=== PATIENT | male | born 1970 | race Caucasian/White ===

== ENCOUNTER 2021-10-01 12:06 | Emergency (ER) | payer SELFPAY ==
[~2021-10-01] VITALS: Ht 182.9 cm; Wt 129.6 kg
--- OUTSIDE RECORDS SUMMARY | 2021-10-01 13:25 | CCD ---
Author [facility] Address Unknown Phone Unavailable Support Name Relationship Address Phone UE Next Of Kin Unknown Unavailable SEPIDEH RASMUSSEN Next Of Kin [address] [place] [address] Re-disclosure Warning The records that you are about to access may contain information from federally-assisted alcohol or drug abuse programs. If such information is present, then the following federally mandated warning applies: This information has been disclosed to you from records protected by federal confidentiality rules (42 CFR part 2). The federal rules prohibit you from making any further disclosure of this information unless further disclosure is expressly permitted by the written consent of the person to whom it pertains or as otherwise permitted by 42 CFR part 2. A general authorization for the release of medical or other information is NOT sufficient for this purpose. The Federal rules restrict any use of the information to criminally investigate or prosecute any alcohol or drug abuse patient.The records that you are about to access may contain highly sensitive health information, the redisclosure of which is protected by Article 27-F of the [facility] Public Health law. If you continue you may have access to information: Regarding HIV / AIDS; Provided by facilities licensed or operated by the [facility] Office of Mental Health; or Provided by the [facility] Office for People With Developmental Disabilities. If such information is present, then the following [facility] mandated warning applies: This information has been disclosed to you from confidential records which are protected by state law. State law prohibits you from making any further disclosure of this information without the specific written consent of the person to whom it pertains, or as otherwise permitted by law. Any unauthorized further disclosure in violation of state law may result in a fine or shelter sentence or both. A general authorization for the release of medical or other information is NOT sufficient authorization for further disc losure. Medications No Information Insurance Providers Payer name Policy type / Coverage type Policy ID Covered constitution party ID Covered constitution party's relationship to johansen Policy Johansen Plan Information SELF PAY ONLY [id number] SP [id number] SELF PAY SP Problems, Conditions, and Diagnoses No Information Surgeries/Procedures No Information Results No Information Social History No Information
--- NOTE | 2021-10-01 14:06 | REP ---
INDICATION: blood pressure variability. COMPARISON: None. TECHNIQUE: Portable FINDINGS: The technique utilized in obtaining the radiograph has magnified the cardiac silhouette and accentuated the interstitial markings. There is evidence of mild cardiomegaly accentuated by technique. The lung srivastava are clear. The pleural angles are sharp. The osseous structures are within normal limits. IMPRESSION: There is no acute cardiopulmonary disease. Possible mild cardiomegaly <Electronically signed by Eleazar Webb > 10/01/21 [id number]
[2021-10-01 14:31] LABS: BASO % 0.4 % (0.0-1.0); EOS # 0.1 10^3/uL (0.0-0.5); EOS % 1.2 % (0.0-3.0); HEMOGLOBIN 14.6 g/dl (13.5-17.5); LYMPH # 1.4 10^3/uL (1.5-5.0); LYMPH % 16.6 % (24.0-44.0); MEAN CORPUSCULAR HEMOGLOBIN 32.4 pg (27.0-33.0); MEAN CORPUSCULAR HGB CONC 33.2 g/dl (32.0-36.5); MEAN CORPUSCULAR VOLUME 97.8 fl (80.0-96.0); MONO # 0.7 10^3/uL (0.0-0.8); MONO % 7.9 % (2.0-8.0); NEUTROPHILS # 6.1 10^3/uL (1.5-8.5); NEUTROPHILS % 73.5 % (36.0-66.0); PLATELET COUNT, AUTOMATED 243 10^3/uL (150-450); WHITE BLOOD COUNT 8.3 10^3/uL (4.0-10.0)
[2021-10-01 14:55] LABS: BLOOD UREA NITROGEN 16 MG/DL (7-18); CALCIUM LEVEL 9.1 MG/DL (8.5-10.1); CARBON DIOXIDE LEVEL 22 MEQ/L (21-32); CHLORIDE LEVEL 108 MEQ/L (98-107); GLOMERULAR FILTRATION RATE > 60.0 (>60); GLUCOSE, FASTING 98 MG/DL (70-100); POTASSIUM SERUM 4.4 MEQ/L (3.5-5.1); SODIUM LEVEL 138 MEQ/L (136-145)
[2021-10-01 16:06] VITALS: BP 132/82
--- NOTE | 2021-10-01 17:02 | ECGEPIP ---
[facility] - ED Test Date: 2021-10-01 Pat Name: MITCH STEEN Department: Room: - Gender: Male [place] Hand: Rubi MCCRACKEN : 1970 Requested By: MATTEO Partida Order Number: [id number] Reading MD: Julia Morocho Measurements Intervals [place] Rate: 92 P: 53 TX: 160 QRS: 54 QRSD: 90 T: 28 QT: 352 QTc: 435 Interpretive Statements Normal sinus rhythm No prior Electronically Signed on 10-01-2021 17:02:11 EST by Julia Morocho
== END 2021-10-01 16:08 | disposition home or self-care (01) ==
LOC: EDBD 12:06 → M ED 12:06
DX: Z01.30 Encounter for examination of blood pressure without abnormal findings (principal); I25.10 Atherosclerotic heart disease of native coronary artery without angina pectoris; I10 Essential (primary) hypertension; K21.9 Gastro-esophageal reflux disease without esophagitis; M17.10 Unilateral primary osteoarthritis, unspecified knee

== ENCOUNTER 2021-11-07 18:27 | Emergency (ER) | payer SELFPAY ==
[~2021-11-07] VITALS: Ht 182.9 cm; Wt 134.7 kg
[2021-11-07 18:30] VITALS: BP 135/81
== END 2021-11-07 20:00 | disposition left against medical advice (07) ==
LOC: M ED 18:27
DX: Z53.21 Procedure and treatment not carried out due to patient leaving prior to being seen by health care provider (principal)

== ENCOUNTER → 2022-02-10 | Outpatient (CLI) | payer MEDICARE, MEDICAID | LOC: M RAD 12:50 | PROVIDERS: ATTEND Nurse Practitioner Family | DX: R06.00 Dyspnea, unspecified (principal); M25.561 Pain in right knee; M17.11 Unilateral primary osteoarthritis, right knee ==

== ENCOUNTER → 2025-09-22 | Outpatient (CLI) | payer MEDICARE, MEDICAID | LOC: M RAD 08:41 | PROVIDERS: ATTEND Student in an Organized Health Care Education/Training Program | DX: M25.562 Pain in left knee (principal); M17.12 Unilateral primary osteoarthritis, left knee ==

== ENCOUNTER → 2025-10-03 | Outpatient (REF) | payer MEDICARE | LOC: M LAB REF 18:59 | PROVIDERS: ATTEND Physician Assistant | DX: J02.9 Acute pharyngitis, unspecified (principal) ==